=== PATIENT | male | born 1980 | race Caucasian/White ===

== ENCOUNTER 2019-05-11 01:11 | Inpatient (IN) ==
[2019-05-11] MEDS ORDERED: HYDROmorphone INJ 0.5 MG/0.5 ML SYR IV PRN (03:54)
[2019-05-11] MEDS ORDERED: ONDANSETRON INJ 2 MG/ML 2 ML VIAL IV PRN (03:54)
[2019-05-11] MEDS ORDERED: TAMSULOSIN HCL 0.4 MG CAP PO ONE (03:54)
[2019-05-11] MEDS ORDERED: POLYETHYLENE (MIRALAX) 17 GM PACK PO PRN (03:54)
[2019-05-11] MEDS ORDERED: ACETAMINOPHEN 325 MG TAB PO PRN (03:54)
[2019-05-11] MEDS: SODIUM CHLORIDE 0.9% 1000ML 1,000 ML IV SCH ×4 (04:14→23:37)
--- NOTE | 2019-05-11 04:38 | History and Physical Report ---
DATE OF ADMISSION: 05/11/2019 CHIEF COMPLAINT: Left kidney stone. HISTORY OF PRESENT ILLNESS: This 38-year-old male with past medical history significant for obesity, sleep apnea on CPAP, history of anxiety disorder and hypertension, but not on any medications, presents with left kidney stone. In January, he was in the [facility] ER. At that time, imaging studies showed left mid ureter 5 mm stone. He says he passed 2 stones since then, again yesterday evening he noticed significant pain in the left flank, 8/10 in severity, was feeling cold. Denies any burning micturition or hematuria. Denies any fever. He went to the [facility] ER and there imaging studies showed 6 mm calculus in the left distal ureter causing mild hydronephrosis and mild periurethral stranding, infection is not excluded on the noncontrast examination. Leukocytosis of 15,000. Creatinine was 1.1. Urinalysis was negative for nitrite or leukocyte esterase, but has significant bacteria. Lactic acid was 1.9. The ER physician at [facility] called Dr. Elam on-call for urology at [place] and was advised to transfer to [place], but the patient decided to come to the [facility] because it is close to his house. Currently, after pain medications, pain is resolved, says he wants to try to pass the stone. Currently resting comfortably. Denies any chest pain, no shortness of breath, no cough, no headache, no blurred vision, no earache, no runny nose, no sore throat. No abdominal pain, no nausea, no vomiting, no diarrhea, no constipation, no blood in the stool or black stools. No swelling in the legs, no rash. ALLERGIES: No known drug allergies. PAST MEDICAL HISTORY: As mentioned above. PAST SURGICAL HISTORY: Amputation of left index finger. MEDICATIONS: Lexapro 20 mg p.o. daily. FAMILY HISTORY: Significant for father and mother had diabetes. SOCIAL HISTORY: Smokes tobacco. Alcohol rarely. No drug use. REVIEW OF SYMPTOMS: As per HPI. Rest of review of systems negative. PHYSICAL EXAMINATION: GENERAL: The patient is morbidly obese, not in acute distress. VITAL SIGNS: Temperature 37.2, pulse 89, respiratory rate 16, blood pressure 150/103, oxygen 95% room air. HEENT: No pallor, no icterus. NECK: No JVD, no neck masses. CARDIOVASCULAR: S1, S2 heard, regular rate and rhythm, no murmur, no gallop. RESPIRATORY SYSTEM: Normal AP diameter. No accessory muscle use. No wheezing, no crackles. ABDOMEN: Soft, bowel sounds present, nontender. No distention. CENTRAL NERVOUS SYSTEM: Alert and oriented. Cranial nerves II-XII grossly intact. Nonfocal. EXTREMITIES: No edema, no erythema. LABORATORY DATA: Labs done at [facility] show WBC 15.6, hemoglobin 13.3, hematocrit 41.3, platelets 333, BUN 19, creatinine 1.1. Sodium 132, potassium 4.2, chloride 99, CO2 19, glucose 120, AST 21, alkaline phosphatase 61, total bilirubin 0.2, calcium 8.7, ALT 36. Urinalysis is negative for leukocyte esterase and positive for bacteria. Lactic acid 1.9. CT abdomen and pelvis shows 6 mm calculus at the left distal ureter causing mild hydronephrosis and mild periurethral stranding, infection is not excluded on noncontrast examination. ASSESSMENT AND PLAN: The patient is a 38-year-old male who presents with left renal colic. 1. Left renal colic. CAT scan showed 6 mm calculus at left distal ureter, causing mild hydronephrosis and mild periurethral stranding, elevation of white count 15,000. UA was negative for leukocyte esterase and nitrite positive, positive for bacteria. Lactic acid is 1.9. All the labs done were at [facility]. Repeat labs in the morning. He received 1 liter of fluid and 1 gram of Rocephin at [facility]. [facility] ER called [facility]rology and and advised to transfer to [place], but the patient decided to come to [facility]. We will keep him n.p.o. We will place IV normal saline 150 mL per hour, IV Dilaudid p.r.n. for pain, IV Zofran p.r.n. Keep him n.p.o. and consult urology for further recommendations. The patient says he wanted to try to pass the stone. 2. Obstructive sleep apnea, on CPAP 3., Obesity, needs counseling. 4. Generalized anxiety disorder, on Lexapro. 5. Deep venous thrombosis prophylaxis, sequential compression devices. DISPOSITION: Admit to medical floor. Expect to discharge home and follow with his family doctor. Level 1 full code. RADHAD
[2019-05-11 05:36] LABS: Basophils # (auto) 0.04 K/uL (0-0.2); Basophils % (auto) 0.4 %; Eosinophils # (auto) 0.07 K/uL (0-0.5); Eosinophils % (auto) 0.7 %; Hematocrit (blood only) 40.4 % (42-52); Hemoglobin 13.1 g/dL (14.0-18.0); Immature Granulocytes # (auto) 0.03 K/uL (0.00-0.02); Immature Granulocytes % (auto) 0.3 %; Lymphocytes # (auto) 1.86 K/uL (1.2-3.4); Lymphocytes % (auto) 17.4 %; Mean Corpuscular Hemoglobin 27.9 pg (25-34); Mean Corpuscular Hgb Conc 32.4 g/dL (32-36); Mean Corpuscular Volume 86.1 fL (80-100); Mean Platelet Volume 9.8 fL (7.4-10.4); Monocytes # (auto) 0.97 K/uL (0.11-0.59); Monocytes % (auto) 9.1 %; Neutrophils # (auto) 7.74 K/uL (1.4-6.5); Neutrophils % (auto) 72.1 %; Platelet Count 319 K/uL (130-400); RDW Coefficient of Variation 14.3 % (11.5-14.5); RDW Standard Deviation 44.3 fL (36.4-46.3); Red Blood Count 4.69 M/uL (4.7-6.1); White Blood Count 10.71 K/uL (4.8-10.8)
[2019-05-11 06:10] LABS: BUN Creatinine Ratio 15.9 (10-20); Calcium 8.4 mg/dl (8.5-10.1); Creatinine Clr Calc Pharmacy 154.6 ml/min; Est GFR (African American) 98.9; Est GFR (Non-African American) 85.3; Potassium 3.9 mmol/L (3.5-5.1)
[2019-05-11 07:30] LABS: Partial Thromboplastin Time 26.4 Seconds (21.0-31.0); Prothrombin Time 10.3 Seconds (9.0-12.0)
--- NOTE | 2019-05-11 08:15 | Urology Consultation ---
Date of Consultation May 11, 2019 Assessment & Plan (1) Left ureteral stone: 38yo M admitted with 6mm left distal ureteral stone, mild hydronephrosis. Pain presently controlled, nontoxic appearing. Discussed options for MET vs intervention today. Pt very much in favor of allowing 24 hours to attempt spontaneous passage. Push fluids, continue IVFs, flomax, and pain control. KUB now and in AM to monitor progress. Due to body habitus, pt is likely not a candidate for elective ESWL procedure. Please consult our service urgently if patient develops fever >101F, intractable pain or nausea, as this will necessitate urgent surgical intervention. Thank you for the consultation and we will continue to monitor closely with primary service. History of Present Illness Reason for Consultation: stone Requesting Physician: Dr. Guy Attending Physician: Isaac Guy MD History of Present Illness 38yo transferred from [facility] c/o severe left abdominal pain, nausea. Diagnosed with 6mm left distal ureteral stone , mild hydronephrosis. Imagines not available- reviewing report from [facility]. Pt has hx of stones, believes 3 episodes since January. Able to spontaneously pass a 5mm left sided stone in January, only required ER evaluation, then one further episode of acute pain which passed within 1-2 hours a few weeks later which he attributes to possible stone passage. 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 He was offered transfer to [facility] but opted for [facility] for location and states "[facility] wanted to place a stent right away and I want to try to avoid that." Pain presently controlled, pt appears comfortable lying in bed. at bedside. VSS, nontoxic. WBC and Cr wnl. Denies LUTS, gross hematuria. Allergies Allergy/AdvReac Type Severity Reaction Status Date / Time No Known Allergies Allergy Unverified 01/25/19 18:58 Home Medications Home Medications Medication Instructions Recorded Confirmed Type escitalopram oxalate [Lexapro] 20 mg PO DAILY 01/25/19 05/11/19 History Patient History Medical History No pertinent past medical history Surgical History No pertinent past surgical history Social History (Reviewed 05/11/19 @ 09:44 by TAO York Preferred Language: Czech Communication Ability: Effective Coiler Required: No Beliefs That Will Affect Care: None Current Living Situation: Spouse Other Information That Helps Us Care for You: No Feels Safe at Home: Yes Safety Concerns: Feels Safe At This Time Smoking Status: Never smoker Do You Dip or Chew Tobacco: Yes ; Hx Alcohol Use: No Hx Substance Use: No Review of Systems Review of Systems: All systems reviewed & are unremarkable except as noted in HPI & below Physical Exam Physical Exam: A&Ox3 Results & Data Vital Signs (Past 12 Hours) Vital Signs Temp Pulse Pulse Resp BP Pulse Ox 05/11/19 04:41 68 18 98 05/11/19 02:30 37.2 C 89 16 150/103 H 95 PG Care Time/CCT Total # of Minutes Spent Total Time Spent with Patient: Total time spent is greater than 50% in coordination of care (as documented) at patient's floor/unit and/or counseling patient:
--- NOTE | 2019-05-11 09:08 | XRay Report ---
KUB CLINICAL HISTORY: left distal stone visibility COMPARISON STUDY: CT of the abdomen and pelvis January 25, 2019. FINDINGS: Pelvis calcifications were shown to represent phleboliths on CT of January 25, 2019. Note is made of an 8 mm x 5 mm calcification which projects over the left transverse process of L5. This f avors a proximal left ureteral calculus and may reflect a calculus shown on CT of January 25, 2019. IMPRESSION: 8 mm x 5 mm calcification which projects over the left transverse process of L5 favors a proximal left ureteral calculus. Electronically signed by: Sohail Veliz M.D. 05/11/2019 9:06 AM
[2019-05-11] MEDS ORDERED: SODIUM CHLORIDE 0.65% NA SOLN 45 ML (OCEAN) ONE (09:51)
[2019-05-11] MEDS: ESCITALOPRAM OXALATE 20 MG TAB PO SCH (09:53)
[2019-05-11] MEDS: cefTRIAXone SODIUM 2,000 MG in DEXTROSE 5% 50 ML IV SCH (10:07)
--- NOTE | 2019-05-11 11:23 | Hospitalist Progress Note ---
Date of Service May 11, 2019 Assessment & Plan (1) Left ureteral stone: renal colic secondary to left ureteral stone -HPI: 38-year-old male with past medical history significant for obesity, sleep apnea on CPAP, history of anxiety disorder and hypertension, but not on any medications, presents with left kidney stone. In January, he was in the [facility] ER. At that time, imaging studies showed left mid ureter 5 mm stone. He says he passed 2 stones since then, again yesterday evening he noticed significant pain in the left flank, 8/10 in severity, was feeling cold. Denies any burning micturition or hematuria. Denies any fever. He went to the [place] ER and there imaging studies showed 6 mm calculus in the left distal ureter causing mild hydronephrosis and mild periurethral stranding, infection is not excluded on the noncontrast examination. Leukocytosis of 15,000. Creatinine was 1.1. Urinalysis was negative for nitrite or leukocyte esterase, but has significant bacteria. Lactic acid was 1.9. He received 1 liter of fluid and 1 gram of Rocephin at [facility]. The ER physician at [facility] called Dr. Elam on-call for urology at [place] and was advised to transfer to [place], but the patient decided to come to the [facility] because it is close to his house. Summary and plans -38yo transferred from [facility] c/o severe left abdominal pain, nausea. -Diagnosed with 6mm left distal ureteral stone , mild hydronephrosis -Due to body habitus, pt is likely not a candidate for elective ESWL procedure as per [facility] Urology service -continue IV fluids, tamsulosin, prn pain medications, prn anti-emetics, follow KUB X rays, continue ceftriaxone for now Morbid with BMI 49.2 -encourage ambulation Obstructive sleep apnea, on CPAP -CPAP at night with sleep Generalized anxiety disorder -mood is stable -continue Lexapro Deep venous thrombosis prophylaxis: sequential compression devices Subjective Patient seen and examined while sitting up in chair. No acute pain currently. IV fluids are running. Patient able to urinate but denies seeing stones or clots of blood in the urine. no vomiting. no fevers. breathing on room air. no shortness of breath. no dizziness, no lightheadedness Review of Systems Review of Systems: All systems reviewed & are unremarkable except as noted in HPI & below Physical Exam Constitutional: + obese Eyes: PERRL, conjunctivae normal, anicteric sclerae EOM intact bilaterally ENMT: external ear and nose normal, oropharynx normal Neck: trachea midline, no thyromegaly normal visual inspection Respiratory: normal respiratory effort, lungs clear to auscultation Cardiovascular: Rate/Rhythm: regular rate and regular rhythm Gastrointestinal (Abdomen): normal bowel sounds, soft, nontender, no hepatosplenomegaly Musculoskeletal: Head/Neck/Chest: normocephalic and head atraumatic Neurologic: PERRL, EOMI, accommodation nl, no face palsy, no dysarthria CN's II-XI intact bilaterally Psychiatric: A+Ox3, euthymic affect Results & Data Vital Signs (Past 12 Hours) Vital Signs Temp Pulse Pulse Resp BP Pulse Ox 05/11/19 08:23 36.5 C 85 16 145/88 H 95 05/11/19 04:41 68 18 98 05/11/19 02:30 37.2 C 89 16 150/103 H 95
[2019-05-11] MEDS ORDERED: TAMSULOSIN HCL 0.4 MG CAP PO SCH (21:00)
[2019-05-12] MEDS: SODIUM CHLORIDE 0.9% 1000ML 1,000 ML IV SCH (05:57)
[2019-05-12 07:13] VITALS: BP 151/84; PULSE 77; TEMP 98.2; O2SAT 96
[2019-05-12 07:15] LABS: Basophils # (auto) 0.06 K/uL (0-0.2); Basophils % (auto) 0.9 %; Eosinophils # (auto) 0.21 K/uL (0-0.5); Hematocrit (blood only) 38.8 % (42-52); Hemoglobin 12.9 g/dL (14.0-18.0); Immature Granulocytes # (auto) 0.01 K/uL (0.00-0.02); Immature Granulocytes % (auto) 0.1 %; Lymphocytes # (auto) 1.88 K/uL (1.2-3.4); Lymphocytes % (auto) 26.7 %; Mean Corpuscular Hemoglobin 28.3 pg (25-34); Mean Corpuscular Hgb Conc 33.2 g/dL (32-36); Mean Corpuscular Volume 85.1 fL (80-100); Mean Platelet Volume 9.5 fL (7.4-10.4); Monocytes # (auto) 0.63 K/uL (0.11-0.59); Monocytes % (auto) 8.9 %; Neutrophils # (auto) 4.25 K/uL (1.4-6.5); Neutrophils % (auto) 60.4 %; Platelet Count 300 K/uL (130-400); RDW Coefficient of Variation 14.4 % (11.5-14.5); RDW Standard Deviation 44.8 fL (36.4-46.3); Red Blood Count 4.56 M/uL (4.7-6.1); White Blood Count 7.04 K/uL (4.8-10.8)
[2019-05-12 07:51] LABS: BUN Creatinine Ratio 14.4 (10-20); Calcium 8.3 mg/dl (8.5-10.1); Creatinine Clr Calc Pharmacy 204.8 ml/min; Est GFR (African American) 130.3; Est GFR (Non-African American) 112.4; Potassium 4.2 mmol/L (3.5-5.1)
--- NOTE | 2019-05-12 08:04 | Communication Note ---
Date of Service: May 12, 2019 Unable to assess patient this AM due to surgical schedule. I spoke with RN, states patient had no pain overnight and wishes to go home. Okay to [facility] from [facility] with Flomax and pain control. I can see patient as outpatient tomorrow to discuss plan for outpatient ESWL. Pt is not to have ibuprofen or aspirin products prior to procedure.
--- NOTE | 2019-05-12 08:26 | XRay Report ---
KUB CLINICAL HISTORY: Left ureteral stone. FINDINGS: 2 AP supine abdominal radiographs are compared to study dated 05/11/2019 and correlated wit h abdominal CT dated 01/25/2019. There is a nonobstructed abdominal bowel gas pattern. An 11 mm calculu s is again seen projecting over the mid left ureter just above the transverse process of L5. No addit ional calcifications are seen projecting over either kidney. The bony structures appear intact. IMPRESSION: An obstructing calculus in the mid left ureter is unchanged in position from yesterday. Electronically signed by: Rajesh Gudino M.D. 05/12/2019 8:25 AM
[2019-05-12] MEDS: cefTRIAXone SODIUM 2,000 MG in DEXTROSE 5% 50 ML IV SCH (09:09)
[2019-05-12] MEDS: ESCITALOPRAM OXALATE 20 MG TAB PO SCH (09:09)
--- NOTE | 2019-05-12 09:31 | Hospitalist Progress Note ---
Date of Service May 12, 2019 Assessment & Plan (1) Left ureteral stone: renal colic secondary to left ureteral stone -HPI: 38-year-old male with past medical history significant for obesity, sleep apnea on CPAP, history of anxiety disorder and hypertension, but not on any medications, presents with left kidney stone. In January, he was in the [facility] ER. At that time, imaging studies showed left mid ureter 5 mm stone. He says he passed 2 stones since then, again yesterday evening he noticed significant pain in the left flank, 8/10 in severity, was feeling cold. Denies any burning micturition or hematuria. Denies any fever. He went to the [facility] ER and there imaging studies showed 6 mm calculus in the left distal ureter causing mild hydronephrosis and mild periurethral stranding, infection is not excluded on the noncontrast examination. Leukocytosis of 15,000. Creatinine was 1.1. Urinalysis was negative for nitrite or leukocyte esterase, but has significant bacteria. Lactic acid was 1.9. He received 1 liter of fluid and 1 gram of Rocephin at [facility]. The ER physician at [facility] called Dr. Elam on-call for urology at [place] and was advised to transfer to [place], but the patient decided to come to the [facility] because it is close to his house. Summary and plans -38yo transferred from [facility] c/o severe left abdominal pain, nausea. -Diagnosed with 8 mm x 5 mm calcification which projects over the left transverse process of L5 favors a proximal left ureteral calculus, mild hydronephrosis -KUB on 05/12/19: shows unchanged position of the stone despite IV fluids of 150 cc/hr -Patient's pain symptoms are controlled and he would like to go home and coordinate outpatient with [facility] urology service -discharge to home -[facility] Urology plan for outpatient ESWL (possibly on 05/13/19). Patient is not to have ibuprofen or aspirin products prior to procedure. patient should not have food after midnight and should avoid food before the procedure Patient should contact [facility]rology [address] [place] [address] , [place] [address] -Patient should see primary care doctor if further pain control medication needs Patient may take acetaminophen 325 mg every 6 hours as needed for mild pain or fever Patient reports he has oxycodone medication at home. Patient may take every 6 hours as needed for moderate to severe pain Patient should take tamsulosin (Flomax) daily Prescriptions sent electronically to [facility] pharmacy [address], [place] [address]. Patient may return to his primary care doctor if further pain control medications needed Morbid with BMI 49.2 -Patient should discuss with family doctor on weight loss strategies Obstructive sleep apnea, on CPAP -CPAP at night with sleep Generalized anxiety disorder -mood is stable -continue Lexapro Discharge Diagnosis: Left ureteral stone; renal colic secondary to left ureteral stone; Morbid Obesity with BMI 49.2, Obstructive sleep apnea on CPAP Subjective -KUB on 05/12/19: shows unchanged position of the stone despite IV fluids of 150 cc/hr -Patient's pain symptoms are controlled and he would like to go home and coordinate outpatient with [facility] urology service -no abdominal or flank pain, no vomiting, diet started, no headache, no dizziness, no chest pain, no shortness of breath, breathing on room air, ambulating Review of Systems Review of Systems: All systems reviewed & are unremarkable except as noted in HPI & below Physical Exam Constitutional: + obese Eyes: PERRL, conjunctivae normal, anicteric sclerae EOM intact bilaterally ENMT: external ear and nose normal, oropharynx normal Neck: trachea midline, no thyromegaly normal visual inspection Respiratory: normal respiratory effort, lungs clear to auscultation Cardiovascular: Rate/Rhythm: regular rate and regular rhythm Gastrointestinal (Abdomen): normal bowel sounds, soft, nontender, no hepatosplenomegaly Musculoskeletal: Head/Neck/Chest: normocephalic and head atraumatic Neurologic: PERRL, EOMI, accommodation nl, no face palsy, no dysarthria CN's II-XI intact bilaterally Psychiatric: A+Ox3, euthymic affect Results & Data Vital Signs (Past 12 Hours) Vital Signs Temp Pulse Resp BP Pulse Ox 05/12/19 07:11 36.8 C 77 18 151/84 H 96 05/11/19 23:25 37.1 C 93 H 16 159/94 H 93
--- NOTE | 2019-05-12 09:35 | Discharge Summary ---
Date of Service May 12, 2019 Admission HPI Per Admitting Provider DATE OF ADMISSION: 05/11/2019 CHIEF COMPLAINT: Left kidney stone. HISTORY OF PRESENT ILLNESS: This 38-year-old male with past medical history significant for obesity, sleep apnea on CPAP, history of anxiety disorder and hypertension, but not on any medications, presents with left kidney stone. In January, he was in the [facility] ER. At that time, imaging studies showed left mid ureter 5 mm stone. He says he passed 2 stones since then, again yesterday evening he noticed significant pain in the left flank, 8/10 in severity, was feeling cold. Denies any burning micturition or hematuria. Denies any fever. He went to the [facility] ER and there imaging studies showed 6 mm calculus in the left distal ureter causing mild hydronephrosis and mild periurethral stranding, infection is not excluded on the noncontrast examination. Leukocytosis of 15,000. Creatinine was 1.1. Urinalysis was negative for nitrite or leukocyte esterase, but has significant bacteria. Lactic acid was 1.9. The ER physician at [facility] called Dr. Elam on-call for urology at [place] and was advised to transfer to [place], but the patient decided to come to the [facility] because it is close to his house. Currently, after pain medications, pain is resolved, says he wants to try to pass the stone. Currently resting comfortably. Denies any chest pain, no shortness of breath, no cough, no headache, no blurred vision, no earache, no runny nose, no sore throat. No abdominal pain, no nausea, no vomiting, no diarrhea, no constipation, no blood in the stool or black stools. No swelling in the legs, no rash. Admission Exam Per Admitting Provider GENERAL: The patient is morbidly obese, not in acute distress. VITAL SIGNS: Temperature 37.2, pulse 89, respiratory rate 16, blood pressure 150/103, oxygen 95% room air. HEENT: No pallor, no icterus. NECK: No JVD, no neck masses. CARDIOVASCULAR: S1, S2 heard, regular rate and rhythm, no murmur, no gallop. RESPIRATORY SYSTEM: Normal AP diameter. No accessory muscle use. No wheezing, no crackles. ABDOMEN: Soft, bowel sounds present, nontender. No distention. CENTRAL NERVOUS SYSTEM: Alert and oriented. Cranial nerves II-XII grossly intact. Nonfocal. EXTREMITIES: No edema, no erythema. Principal Diagnosis Left ureteral stone; renal colic secondary to left ureteral stone; Morbid Obesity with BMI 49.2, Obstructive sleep apnea on CPAP Discharge Exam Constitutional + obese Eyes PERRL, conjunctivae normal, anicteric sclerae EOM intact bilaterally ENMT external ear and nose normal, oropharynx normal Neck trachea midline, no thyromegaly normal visual inspection Respiratory normal respiratory effort, lungs clear to auscultation Cardiovascular Rate/Rhythm: regular rate and regular rhythm Gastrointestinal (Abdomen) normal bowel sounds, soft, nontender, no hepatosplenomegaly Musculoskeletal Head/Neck/Chest: normocephalic and head atraumatic Neurologic PERRL, EOMI, accommodation nl, no face palsy, no dysarthria CN's II-XI intact bilaterally Psychiatric A+Ox3, euthymic affect Discharge Data Allergies Allergy/AdvReac Type Severity Reaction Status Date / Time No Known Allergies Allergy Unverified 01/25/19 18:58 Consultations 05/11/19 03:54 Consult Urology Routine Hospital Course (1) Left ureteral stone: renal colic secondary to left ureteral stone -HPI: 38-year-old male with past medical history significant for obesity, sleep apnea on CPAP, history of anxiety disorder and hypertension, but not on any medications, presents with left kidney stone. In January, he was in the [facility] ER. At that time, imaging studies showed left mid ureter 5 mm stone. He says he passed 2 stones since then, again yesterday evening he noticed significant pain in the left flank, 8/10 in severity, was feeling cold. Denies any burning micturition or hematuria. Denies any fever. He went to the [facility] ER and there imaging studies showed 6 mm calculus in the left distal ureter causing mild hydronephrosis and mild periurethral stranding, infection is not excluded on the noncontrast examination. Leukocytosis of 15,000. Creatinine was 1.1. Urinalysis was negative for nitrite or leukocyte esterase, but has significant bacteria. Lactic acid was 1.9. He received 1 liter of fluid and 1 gram of Rocephin at [facility]. The ER physician at [facility] called Dr. Elam on-call for urology at [place] and was advised to transfer to [place], but the patient decided to come to the [facility] because it is close to his house. Summary and plans -38yo transferred from [facility] c/o severe left abdominal pain, nausea. -Diagnosed with 8 mm x 5 mm calcification which projects over the left transverse process of L5 favors a proximal left ureteral calculus, mild hydronephrosis -KUB on 05/12/19: shows unchanged position of the stone despite IV fluids of 150 cc/hr -Patient's pain symptoms are controlled and he would like to go home and coordinate outpatient with [facility] urology service -discharge to home -[facility] plan for outpatient ESWL (possibly on 05/13/19). Patient is not to have ibuprofen or aspirin products prior to procedure. patient should not have food after midnight and should avoid food before the procedure Patient should contact [facility] [address] [place] [address] , [place] [address] -Patient should see primary care doctor if further pain control medication needs Patient may take acetaminophen 325 mg every 6 hours as needed for mild pain or fever Patient reports he has oxycodone medication at home. Patient may take every 6 hours as needed for moderate to severe pain Patient should take tamsulosin (Flomax) daily Prescriptions sent electronically to [facility] pharmacy [address] [place] [address]. Patient may return to his primary care doctor if further pain control medications needed Morbid with BMI 49.2 -Patient should discuss with family doctor on weight loss strategies Obstructive sleep apnea, on CPAP -CPAP at night with sleep Generalized anxiety disorder -mood is stable -continue Lexapro Discharge Diagnosis: Left ureteral stone; renal colic secondary to left ureteral stone; Morbid Obesity with BMI 49.2, Obstructive sleep apnea on CPAP Total Time Total Time Spent Total Time Spent (In Minutes): 40 minutes Total Time Includes: Examination of the Patient, Discharge Planning, Medication Reconciliation and Communication With Other Providers Discharge Plan Discharge Items Patient Disposition: Home - Self-Care Reason For Visit: LEFT KIDNEY STONE Discharge Diagnosis: Left ureteral stone; renal colic secondary to left ureteral stone; Morbid Obesity with BMI 49.2, Obstructive sleep apnea on CPAP Condition on Discharge: Good Activity: Resume your previous activity Non-emergency contact: Primary Care Provider and Urologist Call non-emergency contact if: you have any medication questions Follow-up/Referrals: Coral Romero, SHREYAC [Primary Care Provider] - Diet: Low Fat Addtl Attending Provider Instructions: 8 mm x 5 mm calcification which projects over the left transverse process of L5 favors a proximal left ureteral calculus KUB on 05/12/19; shows unchanged position of the stone despite IV fluids of 150 cc/hr Patient's pain symptoms are controlled and he would like to go home and coordinate outpatient with [facility] urology service discharge to home [facility] plan for outpatient ESWL (possibly on 05/13/19). Patient is not to have ibuprofen or aspirin products prior to procedure. patient should not have food after midnight and should avoid food before the procedure Patient should contact [facility] [address] [place] [address] , [place] [address] Patient should see primary care doctor if further pain control medication needs Patient may take acetaminophen 325 mg every 6 hours as needed for mild pain or fever Patient reports he has oxycodone medication at home. Patient may take every 6 hours as needed for moderate to severe pain Patient should take tamsulosin (Flomax) daily Prescriptions sent electronically to [facility] pharmacy [address] [place] [address]. Patient may return to his primary care doctor if further pain control medications needed Patient should discuss with family doctor on weight loss strategies Pending Studies at Discharge: No Stand-Alone Forms: My [facility], Smoking Cessation Medications and DC Order Prescriptions: New acetaminophen 325 mg tablet 325 mg PO Q6H PRN (Reason: mild pain or fever) 5 Days Qty: 20 RF: 0 tamsulosin [Flomax] 0.4 mg capsule 0.4 mg PO HS 30 Days Qty: 30 RF: 0 Continued escitalopram oxalate [Lexapro] 20 mg tablet 20 mg PO DAILY RF: 0 Discharge Orders: Discharge Order (Routine); Ordered 05/12/19 Ordered By: Isaac Guy Admission Data Admit Date/Time: 05/11/19 02:15 Attending Provider: Isaac Guy Admit Provider: David Dorantes Primary Care Provider: Coral Romero Other Providers: Dami Hewitt
--- NOTE | 2019-05-12 13:38 | Urology Progress Note ---
Date of Service May 12, 2019 Assessment & Plan (1) Left ureteral stone: A/P 38-year-old with 8 mm left mid ureteral stone. Findings reviewed with patient. He would prefer to avoid inpatient acute intervention and stent placement. We will tentatively plan on a left ureteral extracorporeal shockwave lithotripsy later this week. Patient scheduled for office visit at 4 PM tomorrow to review risks and benefits of plan and obtain consent should he wish to proceed. Patient pending discharge, will see as outpatient as planned. Discharge instructions reviewed. Thank you for allowing us to participate in this patient's acute care. Please contact our service with any questions or concerns. Subjective Patient with a left mid ureteral stone seen by our service yesterday. Past consultation and current imaging is reviewed. Current KUB shows no change in position of the stone. However patient is relatively asymptomatic. He is tolerating a regular diet without fevers, chills, nausea, vomiting or emesis. Review of Systems Constitutional: no fever and no chills Eyes: no diplopia Ear, Nose, Mouth, Throat: no ear trauma Respiratory: no hemoptysis Cardiovascular: no chest pain Integumentary: no acne and no boil Neurologic: no paralysis Psychiatric: no hopelessness Allergy / Immunological: no tongue swelling Physical Exam Constitutional: + obese; no acute distress Eyes: eyes not dysmorphic ENMT: Ears: no external ear abnormality Neck: trachea midline; no anterior neck swelling Respiratory: no respiratory distress and does not use accessory muscles Cardiovascular: Vessels: radial pulses present Gastrointestinal (Abdomen): Inspection/Auscultation: abdomen not distended Percussion/Palpation: abdomen soft; abdomen nontender Musculoskeletal: Head/Neck/Chest: normocephalic and neck supple Skin: normal turgor Neurologic: awake; not obtunded Psychiatric: Orientation: oriented x 3 Lymphatic: no lymphadenopathy Results & Data Vital Signs (Past 12 Hours) Vital Signs Temp Pulse Resp BP Pulse Ox 05/12/19 07:11 36.8 C 77 18 151/84 H 96 Laboratory Results Laboratory Results - last 48 hr 05/11/19 05/11/19 05/11/19 05:16 05:16 06:48 WBC 10.71 RBC 4.69 L Hgb 13.1 L Hct 40.4 L MCV 86.1 MCH 27.9 MCHC 32.4 RDW Std Deviation 44.3 RDW Coeff of Redd 14.3 Plt Count 319 MPV 9.8 Immature Gran % (Auto) 0.3 Neut % (Auto) 72.1 Lymph % (Auto) 17.4 Moca % (Auto) 9.1 Eos % (Auto) 0.7 Baso % (Auto) 0.4 Immature Gran # (Auto) 0.03 H Neut # (Auto) 7.74 H Lymph # (Auto) 1.86 Moca # (Auto) 0.97 H Eos # (Auto) 0.07 Baso # (Auto) 0.04 PT 10.3 INR 1.0 APTT 26.4 PTT Ratio 1.0 Sodium 140 Potassium 3.9 Chloride 110 H Carbon Dioxide 26 Anion Gap 4.0 BUN 18 Creatinine 1.10 Est Cr Clr Drug Dosing 154.6 Est GFR ( Amer) 98.9 Est GFR (Non-Af Amer) 85.3 BUN/Creatinine Ratio 15.9 Glucose 107 H Lactate Calcium 8.4 L Magnesium 2.0 05/12/19 05/12/19 05/12/19 07:07 07:07 07:07 WBC 7.04 RBC 4.56 L Hgb 12.9 L Hct 38.8 L MCV 85.1 MCH 28.3 MCHC 33.2 RDW Std Deviation 44.8 RDW Coeff of Redd 14.4 Plt Count 300 MPV 9.5 Immature Gran % (Auto) 0.1 Neut % (Auto) 60.4 Lymph % (Auto) 26.7 Moca % (Auto) 8.9 Eos % (Auto) 3.0 Baso % (Auto) 0.9 Immature Gran # (Auto) 0.01 Neut # (Auto) 4.25 Lymph # (Auto) 1.88 Moca # (Auto) 0.63 H Eos # (Auto) 0.21 Baso # (Auto) 0.06 PT INR APTT PTT Ratio Sodium 145 Potassium 4.2 Chloride 114 H Carbon Dioxide 24 Anion Gap 7.0 BUN 12 Creatinine 0.83 Est Cr Clr Drug Dosing 204.8 Est GFR ( Amer) 130.3 Est GFR (Non-Af Amer) 112.4 BUN/Creatinine Ratio 14.4 Glucose 110 H Lactate 1.3 Calcium 8.3 L Magnesium PG Care Time/CCT Total # of Minutes Spent Total Time Spent with Patient: Total time spent is greater than 50% in coordination of care (as documented) at patient's floor/unit and/or counseling patient:
== END 2019-05-12 13:21 | disposition home or self-care (01) | DRG 694 ==
LOC: SUATTDRO 02:15 → 3N 02:15